=== PATIENT | male | born 2000 | race Caucasian/White ===

== ENCOUNTER 2020-09-25 17:11 | Emergency (ER) | payer OTHER ==
[~2020-09-25] VITALS: Ht 193 cm; Wt 117.9 kg
[~2020-09-25 17:11] MED LIST: ABILIFY 5 MG TAB5 M1 PO; ADDERALL 30 MG30 MG; AMOXICILLIN 50500 MG PO; IBUPROFEN 400400 M2 PO; IBUPROFEN 800800 M1 PO; NOHOMEMEDICATIONS; PREDNISONE 20 M20 MG PO; TESSALON PERLE100 MG PO; VENTOLIN HFA 1818 GM INH; ZPAK PO
[2020-09-25] MEDS ORDERED: ZOFRAN ODT4 MG PO (18:42)
[2020-09-25 18:46] VITALS: BP 148/73
== END 2020-09-25 18:47 | disposition home or self-care (01) ==
LOC: M.ERS 17:11
DX: B34.9 Viral infection, unspecified (principal); R11.2 Nausea with vomiting, unspecified; Z20.822 Contact with and (suspected) exposure to COVID-19

== ENCOUNTER 2020-11-04 18:41 | Emergency (ER) | payer OTHER ==
[~2020-11-04] VITALS: Ht 193 cm; Wt 120.2 kg
[~2020-11-04 18:41] MED LIST changes: +ZOFRAN ODT4 MG PO
[2020-11-04 19:05] VITALS: BP 166/93
== END 2020-11-04 21:27 | disposition left against medical advice (07) ==
LOC: M.ERS 18:41
DX: Z53.21 Procedure and treatment not carried out due to patient leaving prior to being seen by health care provider (principal)